=== PATIENT | male | born 1990 | race Caucasian/White ===

== ENCOUNTER 2018-10-12 01:30 | Emergency (ER) | payer MEDICAID ==
[~2018-10-12] VITALS: Ht 167.6 cm; Wt 72.6 kg
[2018-10-12 01:40] VITALS: BP_SYST 127
--- NOTE | 2018-10-12 01:40 | NUR ---
Patient to ER [facility] for evaluation. Patient up ambulating in Hallway asking for water. Explained to patient that since he was nauseated/vomiting that he wa not allowed to have anything by mouth.
--- NOTE | 2018-10-12 01:45 | NUR ---
Patient to ER via EMS for evaluation of nausea/vomiting and abd pain from vomiting x 1 week. Patient reports that he has been under increased stress and has been drinking ETOH. Patient ambulating in [place] asking for something to drink, attempting to explain to patient that because he has nausea/vomiting he should not have anything by mouth. Patient up attempting to drink from water fountain. Patient is awake, alert and oriented in no acute distress, vital signs stable, respirations even and unlabored, skin warm and dry to touch. Awaiting evaluation by ER MD, will continue to observe and assess.
--- NOTE | 2018-10-12 01:50 | NUR ---
ER at bedside examining patient.
[2018-10-12] MEDS ORDERED: NACL 0.9% 1,000 ML IV ONE (02:03)
[2018-10-12] MEDS ORDERED: ONDANSETRON HCL 4 MG/2 ML VIAL IVP ONE (02:15)
--- NOTE | 2018-10-12 02:30 | NUR ---
Lab at bedside to obtain blood specimens.
--- NOTE | 2018-10-12 03:05 | NUR ---
IV fluids infusing without difficulty, no redness or swelling noted at site. Awaiting results and dispo. No adverse reaction noted to medication.
[2018-10-12 03:06] LABS: BASOPHILS # (AUTO) 0.1 K/uL (0.0-0.2); BASOPHILS % (AUTO) 3.3 % (0.0-2.0); EOSINOPHILS % (AUTO) 0.1 % (0.0-4.0); HEMATOCRIT 52.8 % (36-54); HEMOGLOBIN 17.4 g/dL (14.0-18.0); LYMPHOCYTES # (AUTO) 0.9 K/uL (1.0-5.5); LYMPHOCYTES % (AUTO) 22.5 % (20.5-51.5); MEAN CORPUSCULAR HEMOGLOBIN 32 pg (27-31); MEAN CORPUSCULAR HGB CONC 33 % (32-36); MEAN CORPUSCULAR VOLUME 98 fL (79.0-98.0); MONOCYTES # (AUTO) 0.5 K/uL (0.0-1.0); MONOCYTES % (AUTO) 14.4 % (1.7-9.3); NEUTROPHILS # (AUTO) 2.3 K/uL (1.8-7.7); NEUTROPHILS % (AUTO) 59.7 % (40.0-70.0); PLATELET COUNT (AUTO) 263 K/uL (130-430); WHITE BLOOD COUNT (AUTO) 3.8 K/uL (4.8-10.8)
[2018-10-12 03:08] LABS: CREATININE 0.95 mg/dL (0.55-1.30); POTASSIUM 3.4 mmol/L (3.5-5.1)
[2018-10-12 03:16] LABS: ALBUMIN 3.9 g/dL (3.4-4.8); TOTAL BILIRUBIN 0.7 mg/dL (0.0-1.0)
[2018-10-12 06:42] LABS: BILIRUBIN,URINE NEGATIVE (NEGATIVE); BLOOD, URINE NEGATIVE (NEGATIVE); CLARITY/URINE CLEAR (CLEAR); COLOR,URINE YELLOW (YELLOW); GLUCOSE,URINE NEGATIVE (NEGATIVE); KETONES,URINE NEGATIVE (NEGATIVE); LEUKOCYTE ESTERASE ,URINE NEGATIVE (NEGATIVE); NITRITE, URINE NEGATIVE (NEGATIVE); PH,URINE 7.5 (5.0-8.0); PROTEIN URINE NEGATIVE (NEGATIVE)
[2018-10-12 07:25] VITALS: BP_SYST 120
--- NOTE | 2018-10-12 07:25 | NUR ---
Patient given written and verbal discharge instructions and verbalizes understanding. ER MD discussed with patient the results and treatment provided. Patient in stable condition. ID arm band removed. IV catheter removed intact and dressing applied, no active bleeding. No Rx given. Patient educated on pain management and to follow up with PMD. Pain Scale 2. Opportunity for questions provided and answered.
== END 2018-10-12 07:25 | disposition home or self-care (01) ==
LOC: SED 01:30
DX: F10.129 Alcohol abuse with intoxication, unspecified (principal)
CPT/HCPCS: 36415; 80053; 81003; 82150; 83690; 85025; 96361; 96374; 99283; G0482; J2405; J7030